=== PATIENT | male | born 1990 | race Caucasian/White ===

== ENCOUNTER 2017-11-11 06:35 | Emergency (ER) | payer BC, OTHER ==
[~2017-11-11] VITALS: Ht 180.3 cm; Wt 68.0 kg
--- NOTE | 2017-11-11 06:50 | NUR ---
TO BED 9 AMBULATORY C/O R SIDED TESTICULAR PAIN SINCE MIDNIGHT. PT AAOX4 NO ACUTE DISTRESS NOTED, RESP EVEN AND UNLABORED. PT DENIES BURNIG AND FREQUENCY UPON URINATION. URINE SAMPLE COLLECTED. ER MD AT BEDSIDE TO EVAL PT WITH ORDERS RECEIVED. WILL CARRY OUT ORDERS.
[2017-11-11] MEDS ORDERED: MORPHINE SULFATE INJ 4 MG/ML DISP.SYRIN ONE (06:55)
[2017-11-11] MEDS ORDERED: ONDANSETRON HCL/PF 4 MG/2 ML VIAL ONE (06:55)
[2017-11-11] MEDS: IV NS 0.9% 1,000 ML IV ONE (07:00)
--- NOTE | 2017-11-11 07:00 | NUR ---
STARTED SL 18G TO LAC, BLOOD DRAWN AND SENT TO LAB.
--- NOTE | 2017-11-11 07:05 | NUR ---
LOGAN TECH AT BEDSIDE FOR TESTICULAR LOGAN.
[2017-11-11] MEDS: MORPHINE SULFATE INJ 2 MG/ML DISP.SYRIN IV ONE (07:07)
[2017-11-11] MEDS: ONDANSETRON HCL/PF - ER 4 MG/2 ML VIAL IV ONE (07:08)
--- NOTE | 2017-11-11 07:16 | NUR ---
REPORT GIVEN TO AM SHIFT RN JAZZ.
--- NOTE | 2017-11-11 07:24 | NUR ---
ACCEPTED TO [facility]. BY DR SIMPSON, DR DEBRA SULTANA
--- NOTE | 2017-11-11 07:32 | NUR ---
[facility] INFORMED THAT [facility] IS GOING STRAIGHT TO OR
[2017-11-11 08:00] VITALS: BP 128/64
--- NOTE | 2017-11-11 08:00 | NUR ---
Asked Dr Patterson if he wanted to order pre-op labs and he said "no, patient will go to OR right away".
--- NOTE | 2017-11-11 08:13 | NUR ---
SPOKE WITH [facility] TO ARRANGE TRANSPORT TO [facility]. ETA 30-45 MINUTES
--- NOTE | 2017-11-11 08:20 | NUR ---
[facility] ON SITE TO TRANSPORT PT AT THIS TIME
--- NOTE | 2017-11-11 08:35 | NUR ---
Report given to [facility]. Patient is transported to [facility] in stable condition.
== END 2017-11-11 08:40 | disposition short-term general hospital (02) ==
LOC: ER 06:39
DX: N44.00 Torsion of testis, unspecified (principal); N43.3 Hydrocele, unspecified
CPT/HCPCS: 76870-TC; A4606; J2270; J2405; J7030; Z7610